=== PATIENT | female | born 1995 | race Caucasian/White ===

== ENCOUNTER 2021-12-13 16:21 | Emergency (ER) | payer BC ==
[~2021-12-13] VITALS: Ht 165.1 cm; Wt 83.5 kg
[2021-12-13] MEDS ORDERED: METHYLPREDNISOLONE SOD SUCC 125 MG/2ML VIAL IV ONE (17:00)
[2021-12-13] MEDS ORDERED: PREDNISONE50 MG PO (18:12)
[2021-12-13] MEDS ORDERED: CETIRIZINE HCL10 MG PEG (18:12)
[2021-12-13 19:11] VITALS: BP 136/74
== END 2021-12-13 18:00 | disposition home or self-care (01) ==
LOC: ER 16:30
DX: T88.6XXA Anaphylactic reaction due to adverse effect of correct drug or medicament properly administered, initial encounter (principal); L50.9 Urticaria, unspecified
CPT/HCPCS: 99283

== ENCOUNTER 2022-02-18 18:38 | Emergency (ER) | payer BC ==
[~2022-02-18] VITALS: Ht 165.1 cm; Wt 83.5 kg
[~2022-02-18 18:38] MED LIST: CETIRIZINE HCL10 MG PEG; PREDNISONE50 MG PO
[2022-02-18] MEDS ORDERED: FAMOTIDINE 20 MG TAB PO ONE (19:30)
[2022-02-18] MEDS ORDERED: PREDNISONE 20 MG TAB PO ONE (19:30)
[2022-02-18] MEDS ORDERED: PREDNISONE20 MG PO (20:20)
[2022-02-18 20:35] VITALS: BP 134/71
== END 2022-02-18 20:36 | disposition home or self-care (01) ==
LOC: FSED 19:00
DX: R42 Dizziness and giddiness (principal); R11.2 Nausea with vomiting, unspecified; R19.7 Diarrhea, unspecified; T78.1XXA Other adverse food reactions, not elsewhere classified, initial encounter; E03.9 Hypothyroidism, unspecified
CPT/HCPCS: 99282; J7512